=== PATIENT | male | born 1965 | race Caucasian/White ===

== ENCOUNTER 2023-12-08 09:55 | Outpatient (CLI) | payer MEDICARE, MEDICAID, SELFPAY | END 2023-12-08 09:56 | disposition home or self-care (01) | LOC: AMB 12-10 06:16 | PROVIDERS: Visit Provider Family Medicine | DX: R07.89 Other chest pain (principal) | CPT/HCPCS: A0425; A0427 ==

== ENCOUNTER 2023-12-08 10:23 | Inpatient (IN) | payer MEDICARE, SELFPAY ==
[2023-12-08] VITALS (31 sets, daily range): BP systolic 132–155; BP diastolic 74–88; PULSE 72–96; RESP 16–20; TEMP 36.7–37.3; O2SAT 86–922; BMI 25.8
--- NOTE | 2023-12-08 10:36 | ED.GENADULT ---
HPI - General Adult General Time Seen by Provider: 10:36 Date Seen: 12/08/23 Chief complaint: Shortness of Breath/Dyspnea Stated complaint: chest pain, short of breath Time Seen by Provider: 12/08/23 10:36 Source: patient, EMS, RN notes reviewed and old records reviewed Mode of arrival: EMS Limitations: no limitations History of Present Illness HPI narrative: This 58-year-old male is sent from [facility] via ambulance for concern of hypoxia in the setting of cough and chest discomfort. He is reported to been sick for 4 days in the Urgent Care documentation, he is telling me it has been a couple days. He has been coughing, there is pain with breathing. He states he feels like when he has had pneumonia before. He was noted to be down to 86% in Urgent Care, I see 89% documented. They did do mask oxygen at urgent care which was stopped. He is on 2 L nasal cannula oxygen with O2 sats at 92% currently. Patient is HIV positive, gets his care at [facility]. He has a remote history of tuberculosis that was treated at [facility] reportedly 20 years ago. He denies any associated GI symptoms. Staff including urgent care and EMS noted to hear crackling in his lungs. He has had associated shortness of breath and headache with his symptoms. Was noted to be having difficulty completing a sentence in urgent care. Related Data Home Medications Medication Instructions Recorded Confirmed alendronate 70 mg tablet 70 mg PO .weekly 12/08/23 12/08/23 atorvastatin 40 mg tablet 40 mg PO DAILY 12/08/23 12/08/23 dolutegravir 50 mg tablet (Tivicay) 50 mg PO DAILY 12/08/23 12/08/23 emtricitabine 200 mg-tenofovir 1 tab PO DAILY 12/08/23 12/08/23 alafenamide fumarate 25 mg tablet (Descovy) escitalopram oxalate 20 mg tablet 20 mg PO DAILY 12/08/23 12/08/23 gabapentin 300 mg capsule 300 mg PO 3XD 12/08/23 12/08/23 lorazepam 1 mg tablet 1 mg PO Q12H PRN 12/08/23 12/08/23 montelukast 10 mg tablet 10 mg PO DAILY 12/08/23 12/08/23 tramadol 50 mg tablet 50 mg PO 3XD PRN 12/08/23 12/08/23 valacyclovir 1 gram tablet 1,000 mg PO DAILY 12/08/23 12/08/23 Allergies Allergy/AdvReac Type Severity Reaction Status Date / Time rifampin Allergy Verified 12/08/23 09:43 Review of Systems Status of ROS: Reports: 6 or more systems reviewed and unremarkable except as noted in History and below [facility] Medical History (Updated 12/08/23 @ 16:32 by Hattie Mcintyre MD) Low back pain ?M54.50 - Low back pain, unspecified (ICD-10) Hepatitis C ?B19.20 - Unspecified viral hepatitis C without hepatic coma (ICD-10) Anxiety ?F41.9 - Anxiety disorder, unspecified (ICD-10) TIA (transient ischemic attack) ?G45.9 - Transient cerebral ischemic attack, unspecified (ICD-10) 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) Pulmonary TB ?A15.0 - Tuberculosis of lung (ICD-10) History of shingles ?Z86.19 - Personal history of other infectious and parasitic diseases (ICD-10) Depression ?F32.A - Depression, unspecified (ICD-10) Peripheral vascular disease ?I73.9 - Peripheral vascular disease, unspecified (ICD-10) HIV (human immunodeficiency virus infection) ?B20 - Human immunodeficiency virus [HIV] disease (ICD-10) Surgical History (Updated 12/08/23 @ 14:46 by Hattie Mcintyre MD) H/O umbilical hernia repair ?Z98.890 - Other specified postprocedural states (ICD-10) ?Z87.19 - Personal history of other diseases of the digestive system (ICD-10) Social History (Updated 12/08/23 @ 15:26 by Hattie Mcintyre MD) Narrative: Lives with partner Jose (medical decision maker if needed), not currently working. Smokes about 1ppd, drinks 3-4 drinks 4-5 nights/week. No history of ETOH withdrawal. Requests DNR/DNI status. What is your current living situation?: I presently have a place to live Problems where you live: no known problems Problems where you live details: n/a In the past 12 months, utilities in danger of being shut off: no In past 12 months, lack of transportation kept you from medical appts, meetings, work, or getting things needed for daily living: no In the past 12 mos, have been you worried that your food would run out before you had money to buy more?: never true In the past 12 mos, the food you bought just didn't last and you didn't have money to buy more?: never true Highest level of school completed/degree received: don't know Smoking Status: Current every day smoker What tobacco products do you use: cigarettes Smoking packs per day: 1 Smoking cigarettes per day: 20.0 Do you use any of these nicotine containing products: None How often do you have a drink containing alcohol: 4 or more times a week How many standard drinks containing alcohol do you have on a typical day: 3 or 4 AUDIT-C Alcohol total score: 5 Non-prescribed substance use: denies use Caffeine: Yes (2 diet cokes/day) Are you now , , , , never or living with a partner: living with partner Social isolation score (0-1 are the most socially isolated patients): 1 How often does anyone, including family, friends and others, physically hurt you: never How often does anyone, including family, friends and others, insult or talk down to you: never How often does anyone, including family, friends and others, threaten you with harm: never How often does anyone, including family, friends and others, scream or curse at you: never Exam Const: Vital Signs, click to edit/add: Vital Signs - 24 hr 12/08/23 10:29 12/08/23 10:35 12/08/23 10:40 Temperature 98.1 F Pulse Rate 76 Pulse Rate [Pulse Oximeter] 86 Respiratory Rate 16 Blood Pressure Blood Pressure [Ri ght Upper Arm] 139/86 Pulse Oximetry 92 93 92 Oxygen Delivery Me thod Room Air Nasal Cannula Nasal Cannula Oxygen Flow Rate 2 2 12/08/23 10:42 12/08/23 10:45 12/08/23 11:00 Temperature Pulse Rate 90 77 Pulse Rate [Pulse Oximeter] Respiratory Rate Blood Pressure Blood Pressure [Ri ght Upper Arm] Pulse Oximetry 922 H 93 93 Oxygen Delivery Me thod Nasal Cannula Nasal Cannula Oxygen Flow Rate 2 2 12/08/23 11:01 12/08/23 11:15 12/08/23 11:30 Temperature Pulse Rate 80 74 80 Pulse Rate [Pulse Oximeter] Respiratory Rate Blood Pressure 145/76 H Blood Pressure [Ri ght Upper Arm] Pulse Oximetry 94 86 L 88 Oxygen Delivery Me thod Nasal Cannula Room Air Room Air Oxygen Flow Rate 2 12/08/23 11:45 12/08/23 12:01 12/08/23 12:02 Temperature Pulse Rate 78 76 81 Pulse Rate [Pulse Oximeter] Respiratory Rate Blood Pressure 151/87 H Blood Pressure [Ri ght Upper Arm] Pulse Oximetry 86 L 91 90 Oxygen Delivery Me thod Room Air Nasal Cannula Nasal Cannula Oxygen Flow Rate 2 2 12/08/23 12:03 12/08/23 12:15 12/08/23 12:30 Temperature Pulse Rate 82 79 76 Pulse Rate [Pulse Oximeter] Respiratory Rate Blood Pressure Blood Pressure [Ri ght Upper Arm] Pulse Oximetry 90 89 91 Oxygen Delivery Me thod Nasal Cannula Nasal Cannula Nasal Cannula Oxygen Flow Rate 2 2 2 12/08/23 12:45 12/08/23 13:08 12/08/23 13:15 Temperature Pulse Rate 85 88 78 Pulse Rate [Pulse Oximeter] Respiratory Rate Blood Pressure Blood Pressure [Ri ght Upper Arm] Pulse Oximetry 91 92 91 Oxygen Delivery Me thod Nasal Cannula Nasal Cannula Nasal Cannula Oxygen Flow Rate 2 2 2 12/08/23 13:30 12/08/23 13:45 12/08/23 14:00 Temperature Pulse Rate 81 89 72 Pulse Rate [Pulse Oximeter] Respiratory Rate Blood Pressure Blood Pressure [Ri ght Upper Arm] Pulse Oximetry 89 89 91 Oxygen Delivery Me thod Nasal Cannula Nasal Cannula Nasal Cannula Oxygen Flow Rate 2 2 2 12/08/23 14:01 12/08/23 14:02 12/08/23 14:15 Temperature Pulse Rate 77 78 76 Pulse Rate [Pulse Oximeter] Respiratory Rate Blood Pressure 138/79 Blood Pressure [Ri ght Upper Arm] Pulse Oximetry 91 90 90 Oxygen Delivery Me thod Nasal Cannula Nasal Cannula Nasal Cannula Oxygen Flow Rate 2 2 2 12/08/23 14:30 Temperature Pulse Rate 78 Pulse Rate [Pulse Oximeter] Respiratory Rate Blood Pressure Blood Pressure [Ri ght Upper Arm] Pulse Oximetry 91 Oxygen Delivery Me thod Nasal Cannula Oxygen Flow Rate 2 This is a very pleasant 58-year-old gentleman that has oxygen on, is alert, interactive, no apparent distress. He is having no difficulty speaking, no hoarseness, able to complete sentences. Face atraumatic, sclera clear, conjugate gaze. Neck supple, no adenopathy, no noted jugular venous distension. He is able to sit up, no tachypnea noted, no accessory muscle use. His lungs did sound clear, initially heard some crackles in the left mid lung field which did clear, slightly distant breath sounds throughout but I hear no wheezing or crackles at this time. CV regular rate and rhythm, no murmur, normal S1-S2, no S3-S4. Abdomen is soft, no rebound or guarding, no organomegaly. He has no lower extremity edema. Documenting provider has reviewed patient's vital signs: yes Course Course ED Course: This is a patient with presenting hypoxia and respiratory symptoms. The triple viral swab was reportedly collected at Urgent Care, will have them run this. Will start with a portable chest x-ray, place an IV and get appropriate labs. He certainly could have 1 of the viral respiratory pathogen such as COVID or influenza, pneumonia is a possibility. With his HIV status, atypical pathogens and opportunistic infections need to be considered. May need to confer with [facility] on this patient. Patient understands that we may need to proceed with CT imaging if clinically indicated. Reevaluation(s) Time of Reevaluation #1: 11:48 Reevaluation #1: Patient is noted to be at 86% at rest now, will place on oxygen again. Obtaining chest CT to fully evaluate for respiratory pathogens, ordered urinary antigens for strep/legionella. Clinic did not test for rsv, will be added. Time of Reevaluation #2: 13:57 Reevaluation #2: Have reviewed with patient that his chest CT is not showing any pneumonia. I do not know his latest CD4 count. Again, he goes to the [facility] per his report. He does remember that his last doctor he was seen wanted him to go on some inhalers. Reviewed with him that I think he is having a COPD exacerbation, could be viral induced. Whether not he needs antibiotics is undetermined at this point. I will be talking to our hospitalist. Consultations Consultation #1: Have spoken with our hospitalist Dr. Mcintyre, reviewed that this is a hypoxic patient, believe he has a COPD exacerbation and have given him 40 mg oral prednisone. He does not have oxygen at home, will need admission. We have discussed the antibiotic issue, she will look into this further. She accepts care of this patient. Time: 13:57 Vital Signs Vital signs: Initial Vital Signs Temperature 98.1 F 12/08/23 10:29 Temperature Source Oral 12/08/23 10:29 Pulse Rate 86 12/08/23 10:29 Respiratory Rate 16 12/08/23 10:29 Respiratory Effort Spontaneous 12/08/23 10:29 Respiratory Depth Shallow 12/08/23 10:29 Respiratory Pattern Short of Breath 12/08/23 10:29 Blood Pressure 139/86 12/08/23 10:29 Blood Pressure Mean 103 12/08/23 10:29 Blood Pressure Position Supine 12/08/23 10:29 Pulse Oximetry 92 12/08/23 10:29 Oxygen Delivery Method Room Air 12/08/23 10:29 Vital Signs Temperature 98.1 F 12/08/23 10:29 Pulse Rate 86 12/08/23 10:29 Respiratory Rate 16 12/08/23 10:29 Blood Pressure 139/86 12/08/23 10:29 Pulse Oximetry 92 12/08/23 10:29 Oxygen Delivery Method Room Air 12/08/23 10:29 Temperature 98.8 F 12/08/23 16:27 Pulse Rate 96 12/08/23 16:27 Respiratory Rate 16 12/08/23 16:27 Blood Pressure 155/88 H 12/08/23 16:27 Pulse Oximetry 91 12/08/23 16:27 Oxygen Delivery Method Nasal Cannula 12/08/23 16:27 Oxygen Flow Rate 1 12/08/23 16:27 Medications Administered Medications: Generic Name Dose Route Start Last Admin Trade Name Freq PRN Reason Stop Dose Admin Lorazepam 0.5 - 1 mg 12/08/23 15:11 12/08/23 15:57 Lorazepam 0.5 Mg Tablet PO 0.5 mg Q4H PRN Administration Nicotine 1 patch 12/08/23 15:30 12/08/23 15:55 Nicotine 7 Mg Patch TRANSDERMA 1 patch Q24H MYRNA Administration Discontinued Medications Generic Name Dose Route Start Last Admin Trade Name Freq PRN Reason Stop Dose Admin Prednisone 40 mg 12/08/23 13:57 12/08/23 14:06 Prednisone 10 Mg Tablet PO 12/08/23 13:58 40 mg ONCE ONE Administration Medical Decision Making Lab Data Lab results reviewed: Yes I reviewed the patient's lab results Labs: Lab Results 12/08/23 12/08/23 12/08/23 Range/Units 10:40 10:55 11:58 WBC 9.26 (4.50-11.00) K/uL RBC 4.17 L (4.30-5.90) m/uL Hgb 14.8 (13.5-17.5) gm/dL Hct 43.9 (37.0-53.0) % MCV 105 H (80-100) fL MCH 36 H (26-34) pg MCHC 34 (32-36) gm/dL RDW Coeff of Mark 13.2 (11.5-15.5) % Plt Count 93 L (140-440) K/uL Neut % (Auto) 77.6 H (42.0-72.0) % Lymph % (Auto) 16.3 L (20-44) % [place] % (Auto) 4.5 (0.0-11.0) % Eos % (Auto) 0.9 (0.0-7.0) % Baso % (Auto) 0.5 (0.0-3.0) % Neut # (Auto) 7.20 H (1.7-7.0) K/uL Lymph # (Auto) 1.50 (0.90-2.90) K/uL [place] # (Auto) 0.40 (0.00-0.90) K/UL Eos # (Auto) 0.08 (0.00-0.50) K/uL Baso # (Auto) 0.05 (0.00-0.30) K/uL Abs Immat Gran (auto) 0.02 (0.00-0.30) K/uL Imm/Tot Granulo (auto) 0.2 % VBG pH 7.424 (7.32-7.43) VBG pCO2 40 (40-50) mmHG VBG pO2 54.1 H (25-47) mmHG VBG HCO3 26 (21-28) mmol/L Sodium 136 (135-149) mmol/L Potassium 4.0 (3.6-5.1) mmol/L Chloride 104 (96-114) mmol/L Carbon Dioxide 24 (20-32) mmol/L Anion Gap 8 (7-15) mEq/L BUN 13 (7-30) mg/dL Creatinine 0.6 (0.5-1.5) mg/dL Estimated Creat Clear 134.20 Estimated GFR 112 ml/min Glucose 119 H (60-115) mg/dL Lactate 1.4 (0.5-1.9) mmol/L Calcium 8.8 (8.4-10.6) mg/dL Total Bilirubin 2.6 H (0.1-1.5) mg/dL AST 72 H (12-35) U/L ALT 38 (4-50) U/L Alkaline Phosphatase 95 (40-150) U/L Troponin I 0.02 (0.01-0.04) ng/mL C-Reactive Protein < 0.5 L (0.5-1.0) mg/dL NT-Pro-B Natriuret Pep 23 pg/mL Total Protein 8.3 (6.0-8.3) g/dL Albumin 4.7 (3.3-5.0) g/dL Procalcitonin 0.05 (<0.50) ng/mL Urine L. pneumophilia Ag Cancelled Urine Strep pneumoniae Ag Cancelled SARS-CoV-2 (PCR) (Negative) Influenza Type A (PCR) (Negative) Influenza Type B (PCR) (Negative) RSV (PCR) (Negative) Lab Acknowledgement POC Troponin I 0.00 L (0.01-0.04) ng/ml 12/08/23 12/08/23 Range/Units 12:00 14:00 WBC (4.50-11.00) K/uL RBC (4.30-5.90) m/uL Hgb (13.5-17.5) gm/dL Hct (37.0-53.0) % MCV (80-100) fL MCH (26-34) pg MCHC (32-36) gm/dL RDW Coeff of Mark (11.5-15.5) % Plt Count (140-440) K/uL Neut % (Auto) (42.0-72.0) % Lymph % (Auto) (20-44) % [place] % (Auto) (0.0-11.0) % Eos % (Auto) (0.0-7.0) % Baso % (Auto) (0.0-3.0) % Neut # (Auto) (1.7-7.0) K/uL Lymph # (Auto) (0.90-2.90) K/uL [place] # (Auto) (0.00-0.90) K/UL Eos # (Auto) (0.00-0.50) K/uL Baso # (Auto) (0.00-0.30) K/uL Abs Immat Gran (auto) (0.00-0.30) K/uL Imm/Tot Granulo (auto) % VBG pH (7.32-7.43) VBG pCO2 (40-50) mmHG VBG pO2 (25-47) mmHG VBG HCO3 (21-28) mmol/L Sodium (135-149) mmol/L Potassium (3.6-5.1) mmol/L Chloride (96-114) mmol/L Carbon Dioxide (20-32) mmol/L Anion Gap (7-15) mEq/L BUN (7-30) mg/dL Creatinine (0.5-1.5) mg/dL Estimated Creat Clear Estimated GFR ml/min Glucose (60-115) mg/dL Lactate (0.5-1.9) mmol/L Calcium (8.4-10.6) mg/dL Total Bilirubin (0.1-1.5) mg/dL AST (12-35) U/L ALT (4-50) U/L Alkaline Phosphatase (40-150) U/L Troponin I (0.01-0.04) ng/mL C-Reactive Protein (0.5-1.0) mg/dL NT-Pro-B Natriuret Pep pg/mL Total Protein (6.0-8.3) g/dL Albumin (3.3-5.0) g/dL Procalcitonin (<0.50) ng/mL Urine L. pneumophilia Ag Urine Strep pneumoniae Ag SARS-CoV-2 (PCR) Negative SARS-CoV-2 (Negative) Influenza Type A (PCR) Negative PCR FLU A (Negative) Influenza Type B (PCR) Negative PCR FLU B (Negative) RSV (PCR) Negative PCR RSV (Negative) Lab Acknowledgement Test Added POC Troponin I (0.01-0.04) ng/ml Imaging Data Chest x-ray: Attestation: I have reviewed the pertinent imaging results. My impression: ML right lower lobe linear appearing change. Await Radiology over-read. Will be obtaining chest CT as it is imperative to define potential respiratory pathogens in this patient. Radiologist's impression: Patient: [facility] Facility:?[facility] Patient ID:?[id number] Site Patient ID:?[id number]. Site :?1965 Study:?XRay Chest 1V-12/08/2023 11:09:30 AM Ordering Physician:?DR. MEJIA Final Report: INDICATION: Short of breath, HIV positive TECHNIQUE: 1 view chest radiograph COMPARISON: None. FINDINGS: Devices: None. Lung volumes are good. Eventration of the right hemidiaphragm. Streaky right middle lobe opacities. No pleural effusion. No pneumothorax. Heart size is normal. IMPRESSION: Nonspecific linear right middle lobe opacities may be pneumonia or atelectasis. Dictated by Archana Gamino MD @ 12/08/2023 11:44:49 AM (Electronic Signature) CT scan - chest: Attestation: I have reviewed the pertinent imaging results. Radiologist's impression: Patient: [facility] Facility:?[facility] Patient ID:?[id number] Site Patient ID:?[id number]. Site :?1965 Study:?CT Chest W/O-12/08/2023 1:10:20 PM Ordering Physician:RUDOLPH Final Report: INDICATION: Cough, HIV positive TECHNIQUE: CT of the chest was performed without intravenous contrast. Please note that all CT scans at this facility use dose modulation, iterative reconstruction, and/or weight-based dosing when appropriate to reduce radiation dose to as low as reasonably achievable. COMPARISON: Same day chest radiograph. FINDINGS: Medical devices: None. Thyroid: Normal. Lymph nodes: Limited evaluation without IV contrast. No supraclavicular, axillary, mediastinal, or hilar lymphadenopathy. Vasculature: Limited evaluation without IV contrast. Aorta and main pulmonary artery diameters are within normal range. Mild aortic calcification. Heart: Mild coronary artery calcification. No pericardial effusion. Other mediastinal structures: No significant abnormality. Lung parenchyma: Moderate centrilobular emphysema. 9 millimeter right upper lobe cyst (3/45). 1.2 centimeter right major fissure cyst (3/60). 7 millimeter left lower lobe cyst (3/76). Airways: Xiui-mo-bywvpqqe bronchial wall thickening. Pleura: No significant abnormality. Chest wall: Mild bilateral gynecomastia. Upper abdomen: Mild hepatic steatosis. Cholelithiasis. Musculoskeletal: Mild multilevel degenerative changes of the visualized spine. Mild chronic posterior right rib deformities. IMPRESSION: 1. Moderate centrilobular emphysema with bilateral small pulmonary cysts. No focal consolidation or ground-glass opacities are seen. Consider correlation with CD4 count. 2. Dddm-xr-ognbkmuh bronchial wall thickening may represent airways infection or inflammation. Please note that all CT scans at this facility use dose modulation, iterative reconstruction, and/or weight-based dosing when appropriate to reduce radiation dose to as low as reasonably achievable. Dictated by Ike Aguilar MD @ 12/08/2023 1:41:47 PM (Electronic Signature) ECG Data Attestation: I personally reviewed and interpreted this ECG as follows: (Normal sinus rhythm, 72 beats per minute. Flipped T-waves V1 through V4 without ST segment change, poor R-wave progression.) Prior ECG tracings: not available for review Discharge Plan Discharge Clinical Impression: COPD with acute exacerbation, Hypoxia HIV (human immunodeficiency virus infection) Qualifiers: HIV symptom status: unspecified Qualified Code(s): B20 - Human immunodeficiency virus [HIV] disease Patient Disposition: Admitted As Observation
--- NOTE | 2023-12-08 10:42 | XR_ITS ---
Patient: RADHA YOUNGER Facility:?[facility] Patient ID:?[id number] Site Patient ID:?[id number]. Site :?1965 Study:?XRay-Chest 1V-12/08/2023 11:09:30 AM Ordering Physician:?DR. MEJIA Final Report: INDICATION: Short of breath, HIV positive TECHNIQUE: 1 view chest radiograph COMPARISON: None. FINDINGS: Devices: None. Lung volumes are good. Eventration of the right hemidiaphragm. Streaky right middle lobe opacities. No pleural effusion. No pneumothorax. Heart size is normal. IMPRESSION: Nonspecific linear right middle lobe opacities may be pneumonia or atelectasis. Dictated by Archana Gamino MD @ 12/08/2023 11:44:49 AM Signed by:?Archana Gamino MD @12/08/2023 11:44:49 AM (Electronic Signature)
[2023-12-08 11:04] LABS: HCO3 VBG 26 mmol/L (21-28); Lactate* 1.4 mmol/L (0.5-1.9); PCO2 VBG 40 mmHG (40-50); PO2 VBG 54.1 mmHG (25-47); pH VBG 7.424 (7.32-7.43)
[2023-12-08 11:08] LABS: Basophils Absolute Auto 0.05 K/uL (0.00-0.30); Basophils Percent Auto 0.5 % (0.0-3.0); Eosinophils Absolute Auto 0.08 K/uL (0.00-0.50); Eosinophils Percent Auto 0.9 % (0.0-7.0); Hematocrit 43.9 % (37.0-53.0); Hemoglobin* 14.8 gm/dL (13.5-17.5); Immature Granulocytes Abs Auto 0.02 K/uL (0.00-0.30); Immature Granulocytes Pct Auto 0.2 %; Lymphocytes Percent Auto 16.3 % (20-44); Mean Corpuscular HGB Conc 34 gm/dL (32-36); Mean Corpuscular Hemoglobin 36 pg (26-34); Mean Corpuscular Volume 105 fL (80-100); Monocytes Percent Auto 4.5 % (0.0-11.0); Neutrophils Percent Auto 77.6 % (42.0-72.0); Platelet Count* 93 K/uL (140-440); RDW Coefficient of Variation % 13.2 % (11.5-15.5); Red Blood Count 4.17 m/uL (4.30-5.90); Slide Review Reflex No; White Blood Count* 9.26 K/uL (4.50-11.00)
[2023-12-08 11:22] LABS: Albumin* 4.7 g/dL (3.3-5.0); Chloride* 104 mmol/L (96-114)
[2023-12-08 11:23] LABS: Sodium* 136 mmol/L (135-149)
[2023-12-08 11:25] LABS: Bilirubin Total* 2.6 mg/dL (0.1-1.5); Creatinine* 0.6 mg/dL (0.5-1.5); Estimated Glomerular Filt Rate 112 ml/min
[2023-12-08 11:26] LABS: Alanine Aminotransferase* 38 U/L (4-50); Alkaline Phosphatase* 95 U/L (40-150); Anion Gap 8 mEq/L (7-15); Aspartate Amino Transferase* 72 U/L (12-35); Blood Urea Nitrogen* 13 mg/dL (7-30); Calcium* 8.8 mg/dL (8.4-10.6); Carbon Dioxide* 24 mmol/L (20-32); Glucose* 119 mg/dL (60-115); Total Protein* 8.3 g/dL (6.0-8.3)
--- NOTE | 2023-12-08 11:30 | CT_ITS ---
Patient: RADHA YOUNGER Facility:?[facility] Patient ID:?[id number] Site Patient ID:?[id number]. Site :?1965 Study:?CT-Chest W/O-12/08/2023 1:10:20 PM Ordering Physician:RUDOLPH Final Report: INDICATION: Cough, HIV positive TECHNIQUE: CT of the chest was performed without intravenous contrast. Please note that all CT scans at this facility use dose modulation, iterative reconstruction, and/or weight-based dosing when appropriate to reduce radiation dose to as low as reasonably achievable. COMPARISON: Same day chest radiograph. FINDINGS: Medical devices: None. Thyroid: Normal. Lymph nodes: Limited evaluation without IV contrast. No supraclavicular, axillary, mediastinal, or hilar lymphadenopathy. Vasculature: Limited evaluation without IV contrast. Aorta and main pulmonary artery diameters are within normal range. Mild aortic calcification. Heart: Mild coronary artery calcification. No pericardial effusion. Other mediastinal structures: No significant abnormality. Lung parenchyma: Moderate centrilobular emphysema. 9 millimeter right upper lobe cyst (3/45). 1.2 centimeter right major fissure cyst (3/60). 7 millimeter left lower lobe cyst (3/76). Airways: Wjxi-kv-tesgvboh bronchial wall thickening. Pleura: No significant abnormality. Chest wall: Mild bilateral gynecomastia. Upper abdomen: Mild hepatic steatosis. Cholelithiasis. Musculoskeletal: Mild multilevel degenerative changes of the visualized spine. Mild chronic posterior right rib deformities. IMPRESSION: 1. Moderate centrilobular emphysema with bilateral small pulmonary cysts. No focal consolidation or ground-glass opacities are seen. Consider correlation with CD4 count. 2. Edlk-vq-lwaslbhm bronchial wall thickening may represent airways infection or inflammation. Please note that all CT scans at this facility use dose modulation, iterative reconstruction, and/or weight-based dosing when appropriate to reduce radiation dose to as low as reasonably achievable. Dictated by Ike Aguilar MD @ 12/08/2023 1:41:47 PM Signed by:?Ike Aguilar MD @12/08/2023 1:41:47 PM (Electronic Signature)
[2023-12-08 11:37] LABS: Troponin I* 0.02 ng/mL (0.01-0.04)
[2023-12-08 11:40] LABS: C Reactive Protein* < 0.5 mg/dL (0.5-1.0)
[2023-12-08 11:52] LABS: NT Pro B Type NatriureticPept* 23 pg/mL
[2023-12-08 13:14] LABS: PCR FLU A Negative PCR FLU A (Negative); PCR FLU B Negative PCR FLU B (Negative); PCR RSV Negative PCR RSV (Negative); SARS PCR* Negative SARS-CoV-2 (Negative)
[2023-12-08] MEDS: predniSONE 10 MG TABLET 40 MG PO (14:06)
[2023-12-08 14:36] LABS: Procalcitonin* 0.05 ng/mL (<0.50)
--- NOTE | 2023-12-08 14:40 | P.IMHP_ITS ---
Hospitalist- H&P: HPI History of Present Illness Date Seen: 12/08/23 Chief complaint: chest pain, short of breath Narrative: Jhony Varela is a 58 year old male who presented to the ER via ambulance from urgent care for hypoxia in the setting of recent illness. He has noted a cough with occasional clear sputum for the past 3-4 days. No hemoptysis. No chest pain at rest, but does get chest discomfort with his cough. No sick contacts, no recent concerning travel. When he was in the urgent care, he was noted to be tachypneic and hypoxic with O2 saturations og 86% on RA. ER course and findings: - receive 40 mg of prednisone and supplemental oxygen for hypoxia - moderate emphysema on chest CT with mild to moderate bronchial wall thickening - reassuring VBG, WBC, and procalcitonin Given patient's acute hypoxic respiratory failure and immunocompromised status (HIV +, last CD4 count within normal limits in October 2023), he is admitted to the hospital. Jhony has no formal diagnosis of COPD, but has discussed inhaler treatments with his PCP in the past. Histories otherwise updated below, PCP is Dr. Zuleyma Hernandez at [facility] [place]. Review of Systems Status of ROS: Reports: 10 or more systems reviewed and unremarkable except as noted in History and below Narrative: - no GI or symptoms - no skin concerns - + stress with father's declining health (he's currently hospitalized in [place]) [facility] Medical History (Updated 12/08/23 @ 16:32 by Hattie Mcintyre MD) Low back pain ?M54.50 - Low back pain, unspecified (ICD-10) Hepatitis C ?B19.20 - Unspecified viral hepatitis C without hepatic coma (ICD-10) Anxiety ?F41.9 - Anxiety disorder, unspecified (ICD-10) TIA (transient ischemic attack) ?G45.9 - Transient cerebral ischemic attack, unspecified (ICD-10) 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) Pulmonary TB ?A15.0 - Tuberculosis of lung (ICD-10) History of shingles ?Z86.19 - Personal history of other infectious and parasitic diseases (ICD- 10) Depression ?F32.A - Depression, unspecified (ICD-10) Peripheral vascular disease ?I73.9 - Peripheral vascular disease, unspecified (ICD-10) HIV (human immunodeficiency virus infection) ?B20 - Human immunodeficiency virus [HIV] disease (ICD-10) Surgical History (Updated 12/08/23 @ 14:46 by Hattie Mcintyre MD) H/O umbilical hernia repair ?Z98.890 - Other specified postprocedural states (ICD-10) ?Z87.19 - Personal history of other diseases of the digestive system (ICD-10) Social History (Updated 12/08/23 @ 15:26 by Hattie Mcintyre MD) Narrative: Lives with partner Jose (medical decision maker if needed), not currently working. Smokes about 1ppd, drinks 3-4 drinks 4-5 nights/week. No history of ETOH withdrawal. Requests DNR/DNI status. What is your current living situation?: I presently have a place to live Smoking Status: Current every day smoker How often do you have a drink containing alcohol: 4 or more times a week How many standard drinks containing alcohol do you have on a typical day: 3 or 4 AUDIT-C Alcohol total score: 5 Are you now , , , , never or living with a partner: living with partner Social isolation score (0-1 are the most socially isolated patients): 1 Meds Home Medications and Allergies Home Medications Medication Instructions Recorded Confirmed Type alendronate 70 mg tablet 70 mg PO .weekly 12/08/23 12/08/23 History atorvastatin 40 mg tablet 40 mg PO DAILY 12/08/23 12/08/23 History dolutegravir 50 mg tablet (Tivicay) 50 mg PO DAILY 12/08/23 12/08/23 History emtricitabine 200 mg-tenofovir 1 tab PO DAILY 12/08/23 12/08/23 History alafenamide fumarate 25 mg tablet (Descovy) escitalopram oxalate 20 mg tablet 20 mg PO DAILY 12/08/23 12/08/23 History gabapentin 300 mg capsule 300 mg PO 3XD 12/08/23 12/08/23 History lorazepam 1 mg tablet 1 mg PO Q12H PRN 12/08/23 12/08/23 History montelukast 10 mg tablet 10 mg PO DAILY 12/08/23 12/08/23 History tramadol 50 mg tablet 50 mg PO 3XD PRN 12/08/23 12/08/23 History valacyclovir 1 gram tablet 1,000 mg PO DAILY 12/08/23 12/08/23 History Allergies Allergy/AdvReac Type Severity Reaction Status Date / Time rifampin Allergy Verified 12/08/23 09:43 Exam Narrative: Exam Narrative: GEN: Alert and answering questions appropriately. When I 1st see patient he is just getting back to bed from the bathroom and is tachypneic. Upon resting, his breathing does improve HEENT: EOMIs bilaterally, + mild scleral icterus bilaterally CV: RRR, No concerning murmurs R: Decreased bibasilar air movement, no significant wheeze during my exam Ext: wwp, no concerning edema Skin: No concerning skin lesions or rashes on exposed skin Neuro: No focal deficits, no resting tremor Psych: Appropriate Const: Vital Signs, click to edit/add: Vital Signs - 24 hr 12/08/23 10:29 12/08/23 10:35 12/08/23 10:40 Temperature 98.1 F Pulse Rate 76 Pulse Rate [Pulse Oximeter] 86 Respiratory Rate 16 Blood Pressure Blood Pressure [Ri ght Upper Arm] 139/86 Pulse Oximetry 92 93 92 Oxygen Delivery Me thod Room Air Nasal Cannula Nasal Cannula Oxygen Flow Rate 2 2 12/08/23 10:42 12/08/23 10:45 12/08/23 11:00 Temperature Pulse Rate 90 77 Pulse Rate [Pulse Oximeter] Respiratory Rate Blood Pressure Blood Pressure [Ri ght Upper Arm] Pulse Oximetry 922 H 93 93 Oxygen Delivery Me thod Nasal Cannula Nasal Cannula Oxygen Flow Rate 2 2 12/08/23 11:01 12/08/23 11:15 12/08/23 11:30 Temperature Pulse Rate 80 74 80 Pulse Rate [Pulse Oximeter] Respiratory Rate Blood Pressure 145/76 H Blood Pressure [Ri ght Upper Arm] Pulse Oximetry 94 86 L 88 Oxygen Delivery Me thod Nasal Cannula Room Air Room Air Oxygen Flow Rate 2 12/08/23 11:45 12/08/23 12:01 12/08/23 12:02 Temperature Pulse Rate 78 76 81 Pulse Rate [Pulse Oximeter] Respiratory Rate Blood Pressure 151/87 H Blood Pressure [Ri ght Upper Arm] Pulse Oximetry 86 L 91 90 Oxygen Delivery Me thod Room Air Nasal Cannula Nasal Cannula Oxygen Flow Rate 2 2 12/08/23 12:03 12/08/23 12:15 12/08/23 12:30 Temperature Pulse Rate 82 79 76 Pulse Rate [Pulse Oximeter] Respiratory Rate Blood Pressure Blood Pressure [Ri ght Upper Arm] Pulse Oximetry 90 89 91 Oxygen Delivery Me thod Nasal Cannula Nasal Cannula Nasal Cannula Oxygen Flow Rate 2 2 2 12/08/23 12:45 12/08/23 13:08 12/08/23 13:15 Temperature Pulse Rate 85 88 78 Pulse Rate [Pulse Oximeter] Respiratory Rate Blood Pressure Blood Pressure [Ri ght Upper Arm] Pulse Oximetry 91 92 91 Oxygen Delivery Me thod Nasal Cannula Nasal Cannula Nasal Cannula Oxygen Flow Rate 2 2 2 12/08/23 13:30 12/08/23 13:45 12/08/23 14:00 Temperature Pulse Rate 81 89 72 Pulse Rate [Pulse Oximeter] Respiratory Rate Blood Pressure Blood Pressure [Ri ght Upper Arm] Pulse Oximetry 89 89 91 Oxygen Delivery Me thod Nasal Cannula Nasal Cannula Nasal Cannula Oxygen Flow Rate 2 2 2 12/08/23 14:01 12/08/23 14:02 12/08/23 14:15 Temperature Pulse Rate 77 78 76 Pulse Rate [Pulse Oximeter] Respiratory Rate Blood Pressure 138/79 Blood Pressure [Ri ght Upper Arm] Pulse Oximetry 91 90 90 Oxygen Delivery Me thod Nasal Cannula Nasal Cannula Nasal Cannula Oxygen Flow Rate 2 2 2 12/08/23 14:30 Temperature Pulse Rate 78 Pulse Rate [Pulse Oximeter] Respiratory Rate Blood Pressure Blood Pressure [Ri ght Upper Arm] Pulse Oximetry 91 Oxygen Delivery Me thod Nasal Cannula Oxygen Flow Rate 2 Hospitalist - H&P: Result Labs Labs: Short CBC 12/08/23 Range/Units 10:55 WBC 9.26 (4.50-11.00) K/uL Hgb 14.8 (13.5-17.5) gm/dL Hct 43.9 (37.0-53.0) % Plt Count 93 L (140-440) K/uL BMP 12/08/23 10:55 Sodium 136 Potassium 4.0 Chloride 104 Carbon Dioxide 24 BUN 13 Creatinine 0.6 Glucose 119 H Calcium 8.8 Cardiac Enzymes 12/08/23 Range/Units 10:55 Troponin I 0.02 (0.01-0.04) ng/mL Liver Function 12/08/23 Range/Units 10:55 Total Bilirubin 2.6 H (0.1-1.5) mg/dL AST 72 H (12-35) U/L ALT 38 (4-50) U/L Alkaline Phosphatase 95 (40-150) U/L Albumin 4.7 (3.3-5.0) g/dL Assessment and Plan Assessment and plan (1) Hypoxia: Problem comment: - acute; history and imaging c/w underlying COPD - continue supplemental oxygen, taper as tolerated Status: Acute (2) COPD with acute exacerbation: Problem comment: - steroids, nebs, Levaquin given risk factors - received immunizations for PCV13 in 2013, P23 in 1990 and 2004 - afebrile with negative procalcitonin - urinary antigens for strep pneumo and legionella pending Status: Acute (3) Anxiety: Problem comment: - on Escitalopram at home + BID Ativan, will continue - anticipate that he may need more Ativan during stay given tobacco withdrawal + steroids Status: Acute (4) HIV (human immunodeficiency virus infection): Problem comment: - diagnosed in 1990, follows with Dr. Hernandez at [facility]. On daily Descovy and Tivicay - last CD4 count 897 (wnl) October 2023 Status: Acute (5) Elevated LFTs: Problem comment: - with macrocytosis, c/w ETOH overuse. No RUQ pain, nausea or vomiting. César denies history of withdrawal, with follow LFTs and CIWA Status: Acute Plan - per above - PPI, po intake, SCDs and Lovenox for ppx - partner Jose updated by phone, questions answered
[2023-12-08] MEDS: NICOTINE 7 MG PATCH 1 PATCH TRANSDERMA (15:55)
[2023-12-08] MEDS: LORazepam 0.5 MG TABLET PO ×2 (15:57→22:28)
[2023-12-08] MEDS: guaiFENesin 100 MG/ML CUP PO (18:34)
[2023-12-08] MEDS: THIAMINE 100 MG TABLET PO (18:35)
[2023-12-08] MEDS: IPRAT-ALBUT 0.5-2.5 MG/3 ML NEB 1 NEB IH (18:35)
[2023-12-08] MEDS: levoFLOXacin 500 MG TABLET PO (19:40)
--- NOTE | 2023-12-08 20:36 | RESP.RT ---
Patient has a 30+ pack year history. SATing 90% on room air. Currently still smokes, but is willing to quit. We discussed he may need home O2 with activity, and testing may be done prior to discharge.
[2023-12-08] MEDS: SODIUM CHLORIDE 0.9 % (FLUSH) 10 ML SYRINGE 5 ML IVF (21:10)
--- NOTE | 2023-12-08 23:40 | PC.NURSE ---
Shift note: Pt has been on airborne precaution. SBA in room, A/O. Pt had low grade fever of 99.2 at the start of the shift. CIWA AR has been at 6. Pt was anxious at 2230 and requested for Ativan, 0.5mg given and appeared effective.
[2023-12-09 03:00] VITALS: BP 130/86; PULSE 75; RESP 16; TEMP 36.8; O2SAT 91
[2023-12-09 03:58] VITALS: BP 130/86; PULSE 106; RESP 18; TEMP 36.8; O2SAT 90
[2023-12-09] MEDS: TRAMADOL HCL 50 MG TABLET PO (04:06)
[2023-12-09] MEDS: ACETAMINOPHEN 325 MG TABLET 975 MG PO (04:06)
[2023-12-09] MEDS: guaiFENesin 100 MG/ML CUP PO (04:17)
[2023-12-09] MEDS: OMEPRAZOLE 20 MG CAPSULE DR 40 MG PO (06:20)
[2023-12-09 06:26] LABS: Basophils Absolute Auto 0.06 K/uL (0.00-0.30); Basophils Percent Auto 0.6 % (0.0-3.0); Eosinophils Absolute Auto 0.05 K/uL (0.00-0.50); Eosinophils Percent Auto 0.5 % (0.0-7.0); Hematocrit 42.7 % (37.0-53.0); Hemoglobin* 14.6 gm/dL (13.5-17.5); Immature Granulocytes Abs Auto 0.02 K/uL (0.00-0.30); Immature Granulocytes Pct Auto 0.2 %; Lymphocytes Percent Auto 17.5 % (20-44); Mean Corpuscular HGB Conc 34 gm/dL (32-36); Mean Corpuscular Hemoglobin 36 pg (26-34); Mean Corpuscular Volume 105 fL (80-100); Monocytes Percent Auto 6.2 % (0.0-11.0); Platelet Count* 87 K/uL (140-440); RDW Coefficient of Variation % 13.1 % (11.5-15.5); Red Blood Count 4.05 m/uL (4.30-5.90); White Blood Count* 9.56 K/uL (4.50-11.00)
[2023-12-09 06:29] LABS: HCO3 VBG 28 mmol/L (21-28); PCO2 VBG 44 mmHG (40-50); PO2 VBG < 30.1 mmHG (25-47); pH VBG 7.405 (7.32-7.43)
--- NOTE | 2023-12-09 06:39 | PC.NURSE ---
Patient pleasant, alert and oriented. Ambulated in room independently. O2 Sats 87-90% on room air during night. Some tremors and sweating noted. PRN Tylenol and Tramadol given for back, neck and shoulder pain.?
[2023-12-09 06:57] LABS: Slide Review Reflex No
[2023-12-09 06:58] LABS: Albumin* 4.6 g/dL (3.3-5.0); Chloride* 104 mmol/L (96-114)
[2023-12-09 06:59] LABS: Potassium* 4.5 mmol/L (3.6-5.1); Sodium* 136 mmol/L (135-149)
[2023-12-09 07:00] VITALS: BP 136/81; PULSE 106; PULSE 96; RESP 18; TEMP 36.8; O2SAT 90; O2SAT 91
[2023-12-09 07:01] LABS: Alkaline Phosphatase* 83 U/L (40-150); Anion Gap 5 mEq/L (7-15); Aspartate Amino Transferase* 77 U/L (12-35); Bilirubin Direct* 0.5 mg/dL (0.0-0.5); Bilirubin Total* 3.5 mg/dL (0.1-1.5); Blood Urea Nitrogen* 17 mg/dL (7-30); Carbon Dioxide* 27 mmol/L (20-32); Creatinine* 0.7 mg/dL (0.5-1.5); Est. Creatinine Clearance* 115.03; Estimated Glomerular Filt Rate 107 ml/min; Gamma Glutamyl Transpeptidase* 408 U/L (8-55); Glucose* 105 mg/dL (60-115); Total Protein* 8.1 g/dL (6.0-8.3)
[2023-12-09 07:02] LABS: Alanine Aminotransferase* 44 U/L (4-50); Calcium* 9.2 mg/dL (8.4-10.6)
[2023-12-09 07:17] LABS: INR 1.11 (0.91-1.10)
[2023-12-09] MEDS: NICOTINE 4 MG GUM BUCCAL (08:34)
[2023-12-09] MEDS: predniSONE 20 MG TABLET 40 MG PO (09:32)
[2023-12-09] MEDS: ESCITALOPRAM 10 MG TABLET 20 MG PO (09:32)
[2023-12-09] MEDS: ATORVASTATIN CALCIUM 40 MG TABLET PO (09:32)
[2023-12-09] MEDS: SODIUM CHLORIDE 0.9 % (FLUSH) 10 ML SYRINGE 5 ML IVF (09:33)
[2023-12-09] MEDS: MONTELUKAST 10 MG TABLET PO (09:33)
[2023-12-09] MEDS: VALACYCLOVIR HCL 500 MG TABLET 1000 MG PO (09:33)
--- NOTE | 2023-12-09 11:39 | PM.DS1 ---
DS: Providers Provider Time Seen by Provider: 09:40 Date Seen: 12/09/23 Date of admission: 12/08/23 15:11 Primary care physician: Not a Local Provider Admitting Clinician: Hattie Mcintyre MD Consults: 12/08/23 15:11 Consult to Respiratory Therapy [CONS] Routine Comment: Reason(s) for RT Consult:: Consult Attending Physician on discharge: Manda Spring MD Date of Discharge: 12/09/23 DS: Diagnosis Discharge Diagnosis (1) Hypoxia: Status: Resolved Problem details: - acute; history and imaging c/w underlying COPD - has not required any supplemental oxygen overnight - counseled today regarding tobacco cessation, patient is agreeable and would like to tried nicotine gum or patch (2) COPD with acute exacerbation: Status: Acute Problem details: - steroids, nebs, Levaquin given risk factors - received immunizations for PCV13 in 2013, P23 in 1990 and 2004 - afebrile with negative procalcitonin - urinary antigens for strep pneumo and legionella pending (3) HIV (human immunodeficiency virus infection): Status: Chronic Problem details: - diagnosed in 1990, follows with Dr. Hernandez at [facility]. On daily Descovy and Tivicay - last CD4 count 897 (wnl) October 2023 (4) Elevated LFTs: Status: Acute Problem details: - with macrocytosis, c/w ETOH overuse. No RUQ pain, nausea or vomiting. César denies history of withdrawal, does have mild withdrawal today, but vital signs are stable and can discharge home today (5) Anxiety: Status: Chronic Problem details: - on Escitalopram at home + BID Ativan (6) Tobacco dependence: Status: Acute Problem details: Nicotine gum for home going, counseled regarding complete cessation, especially in light of COPD (7) Alcohol use: Status: Acute Problem details: Mild alcohol withdrawal DS: Summary Hospital Course Hospital Course: This is a 58-year-old male with HIV and recent CD4 count within normal limits who presented via ambulance to the ER yesterday from urgent care due to hypoxia in the setting of recent illness. He had a cough with occasional clear sputum over 3-4 days. No chest pain at rest but did get chest discomfort with the cough. No sick contacts or recent travel. He was tachypneic and hypoxic with O2 sats 86% on room air. He received 40 mg of prednisone a supplemental oxygen in the ER. Moderate emphysema was seen on chest CT. He is a current smoker. White blood count, VBG, and prolactin were reassuring. He was admitted overnight and was able to wean off supplemental oxygen and tolerated walking in the curry without any oxygen or desaturations today. Will continue steroids, nebs, and levofloxacin for home going and have patient follow-up with his primary care provider. We also spent 7 minutes discussing tobacco cessation in use of nicotine gum. Time spent discussing smoking cessation with patient: 3 to 10 minutes Time Spent with Patient Time attestation: Total time spent providing and/or coordinating discharge services: Exam Narrative: Exam Narrative: General: No acute distress. Anxious at times. Awake, alert, oriented. No pallor. No jaundice. Oropharynx: Clear. Mucous membranes moist. Cardiovascular: Regular rate and rhythm. No murmurs, gallops, or rubs. Respiratory: No respiratory distress. Clear to auscultation bilaterally. No wheezes or crackles. Abdomen: Bowel sounds present. Soft, nondistended, nontender. Extremities: No pedal edema. Const: Vital Signs, click to edit/add: Vital Signs - 24 hr 12/08/23 11:45 12/08/23 12:01 12/08/23 12:02 Temperature Pulse Rate 78 76 81 Pulse Rate [Pulse Oximeter] Respiratory Rate Blood Pressure 151/87 H Blood Pressure [Ri ght Arm] Pulse Oximetry 86 L 91 90 Oxygen Delivery Me thod Room Air Nasal Cannula Nasal Cannula Oxygen Flow Rate 2 2 12/08/23 12:03 12/08/23 12:15 12/08/23 12:30 Temperature Pulse Rate 82 79 76 Pulse Rate [Pulse Oximeter] Respiratory Rate Blood Pressure Blood Pressure [Ri ght Arm] Pulse Oximetry 90 89 91 Oxygen Delivery Me thod Nasal Cannula Nasal Cannula Nasal Cannula Oxygen Flow Rate 2 2 2 12/08/23 12:45 12/08/23 13:08 12/08/23 13:15 Temperature Pulse Rate 85 88 78 Pulse Rate [Pulse Oximeter] Respiratory Rate Blood Pressure Blood Pressure [Ri t Arm] Pulse Oximetry 91 92 91 Oxygen Delivery Me thod Nasal Cannula Nasal Cannula Nasal Cannula Oxygen Flow Rate 2 2 2 12/08/23 13:30 12/08/23 13:45 12/08/23 14:00 Temperature Pulse Rate 81 89 72 Pulse Rate [Pulse Oximeter] Respiratory Rate Blood Pressure Blood Pressure [Ri ght Arm] Pulse Oximetry 89 89 91 Oxygen Delivery Me thod Nasal Cannula Nasal Cannula Nasal Cannula Oxygen Flow Rate 2 2 2 12/08/23 14:01 12/08/23 14:02 12/08/23 14:15 Temperature Pulse Rate 77 78 76 Pulse Rate [Pulse Oximeter] Respiratory Rate Blood Pressure 138/79 Blood Pressure [Ri ght Arm] Pulse Oximetry 91 90 90 Oxygen Delivery Me thod Nasal Cannula Nasal Cannula Nasal Cannula Oxygen Flow Rate 2 2 2 12/08/23 14:30 12/08/23 16:27 12/08/23 16:27 Temperature 98.8 F Pulse Rate 78 Pulse Rate [Pulse Oximeter] 96 Respiratory Rate 16 20 Blood Pressure Blood Pressure [Ri ght Arm] 155/88 H Pulse Oximetry 91 91 91 Oxygen Delivery Me thod Nasal Cannula Nasal Cannula Nasal Cannula Oxygen Flow Rate 2 1 1 12/08/23 16:34 12/08/23 19:00 12/08/23 19:30 Temperature 98.8 F 99.2 F 99.2 F Pulse Rate Pulse Rate [Pulse Oximeter] 96 93 93 Respiratory Rate 20 20 20 Blood Pressure Blood Pressure [Ri ght Arm] 155/88 H 132/74 132/74 Pulse Oximetry 91 93 93 Oxygen Delivery Me thod Nasal Cannula Nasal Cannula Nasal Cannula Oxygen Flow Rate 1 1 1 12/08/23 22:31 12/08/23 23:00 12/08/23 23:00 Temperature 98.3 F Pulse Rate Pulse Rate [Pulse Oximeter] 75 75 Respiratory Rate 20 20 20 Blood Pressure Blood Pressure [Ri ght Arm] 136/84 Pulse Oximetry 89 89 Oxygen Delivery Me thod Room Air Room Air Oxygen Flow Rate 1 12/09/23 03:00 12/09/23 03:58 12/09/23 07:00 Temperature 98.3 F 98.3 F Pulse Rate Pulse Rate [Pulse Oximeter] 75 106 H 106 H Respiratory Rate 16 18 18 Blood Pressure Blood Pressure [Ri ght Arm] 130/86 130/86 Pulse Oximetry 91 90 Oxygen Delivery Me thod Room Air Room Air Oxygen Flow Rate 12/09/23 07:00 12/09/23 07:00 Temperature 98.3 F Pulse Rate Pulse Rate [Pulse Oximeter] 96 Respiratory Rate 18 18 Blood Pressure Blood Pressure [Ri ght Arm] 136/81 Pulse Oximetry 90 91 Oxygen Delivery Me thod Room Air Room Air Oxygen Flow Rate DS: Data Data Completed and Pending Completed studies during hospitalization: 12/08/2023 EKG: Normal sinus rhythm, 72 beats per minute, T-wave abnormality, consider anterior ischemia. Study: XRay-Chest 1V-12/08/2023 11:09:30 AM Ordering Physician: DR. MEJIA Final Report: INDICATION: Short of breath, HIV positive TECHNIQUE: 1 view chest radiograph COMPARISON: None. FINDINGS: Devices: None. Lung volumes are good. Eventration of the right hemidiaphragm. Streaky right middle lobe opacities. No pleural effusion. No pneumothorax. Heart size is normal. IMPRESSION: Nonspecific linear right middle lobe opacities may be pneumonia or atelectasis. Dictated by Archana Gamino MD @ 12/08/2023 11:44:49 AM Signed by: Archana Gamino MD @12/08/2023 11:44:49 AM (Electronic Signature) Dictated By: Archana Gamino M.D. Signed By: 12/08/23 1315 DD/ 1144 TD/TT: 12/08/23 1314 Study: CT-Chest W/O-12/08/2023 1:10:20 PM Ordering Physician: TASHA Final Report: INDICATION: Cough, HIV positive TECHNIQUE: CT of the chest was performed without intravenous contrast. Please note that all CT scans at this facility use dose modulation, iterative reconstruction, and/or weight-based dosing when appropriate to reduce radiation dose to as low as reasonably achievable. COMPARISON: Same day chest radiograph. FINDINGS: Medical devices: None. Thyroid: Normal. Lymph nodes: Limited evaluation without IV contrast. No supraclavicular, axillary, mediastinal, or hilar lymphadenopathy. Vasculature: Limited evaluation without IV contrast. Aorta and main pulmonary artery diameters are within normal range. Mild aortic calcification. Heart: Mild coronary artery calcification. No pericardial effusion. Other mediastinal structures: No significant abnormality. Lung parenchyma: Moderate centrilobular emphysema. 9 millimeter right upper lobe cyst (3/45). 1.2 centimeter right major fissure cyst (3/60). 7 millimeter left lower lobe cyst (3/76). Airways: [id number] bronchial wall thickening. Pleura: No significant abnormality. Chest wall: Mild bilateral gynecomastia. Upper abdomen: Mild hepatic steatosis. Cholelithiasis. Musculoskeletal: Mild multilevel degenerative changes of the visualized spine. Mild chronic posterior right rib deformities. IMPRESSION: 1. Moderate centrilobular emphysema with bilateral small pulmonary cysts. No focal consolidation or ground-glass opacities are seen. Consider correlation with CD4 count. 2. Ogkp-oj-onjlowkn bronchial wall thickening may represent airways infection or inflammation. Please note that all CT scans at this facility use dose modulation, iterative reconstruction, and/or weight-based dosing when appropriate to reduce radiation dose to as low as reasonably achievable. Dictated by Ike Aguilar MD @ 12/08/2023 1:41:47 PM Signed by: Ike Aguilar MD @12/08/2023 1:41:47 PM (Electronic Signature) Dictated By: Jeff Moore MD Signed By: 12/08/23 1603 DD/ 1341 TD/TT: 12/08/23 1603 Pending studies at discharge: Strep pneumo and Legionella Labs on day of discharge: Labs from last 24 hours 12/09/23 12/08/23 12/08/23 05:30 14:00 12:00 WBC 9.56 RBC 4.05 L Hgb 14.6 Hct 42.7 MCV 105 H MCH 36 H MCHC 34 RDW Coeff of Mark 13.1 Plt Count 87 L Neut % (Auto) 75.0 H Lymph % (Auto) 17.5 L Stanton % (Auto) 6.2 Eos % (Auto) 0.5 Baso % (Auto) 0.6 Neut # (Auto) 7.20 H Lymph # (Auto) 1.70 Stanton # (Auto) 0.60 Eos # (Auto) 0.05 Baso # (Auto) 0.06 Abs Immat Gran (auto) 0.02 Imm/Tot Granulo (auto) 0.2 INR 1.11 H VBG pH 7.405 VBG pCO2 44 VBG pO2 < 30.1 VBG HCO3 28 Sodium 136 Potassium 4.5 Chloride 104 Carbon Dioxide 27 Anion Gap 5 L BUN 17 Creatinine 0.7 Estimated Creat Clear 115.03 Estimated GFR 107 Glucose 105 Calcium 9.2 Total Bilirubin 3.5 H Direct Bilirubin 0.5 GGT 408 H AST 77 H ALT 44 Alkaline Phosphatase 83 Troponin I C-Reactive Protein NT-Pro-B Natriuret Pep Total Protein 8.1 Albumin 4.6 Procalcitonin Urine L. pneumophilia Ag Urine Strep pneumoniae Ag SARS-CoV-2 (PCR) Negative SARS-CoV-2 Influenza Type A (PCR) Negative PCR FLU A Influenza Type B (PCR) Negative PCR FLU B RSV (PCR) Negative PCR RSV Lab Acknowledgement Test Added 12/08/23 12/08/23 11:58 10:55 WBC RBC Hgb Hct MCV MCH MCHC RDW Coeff of Mark Plt Count Neut % (Auto) Lymph % (Auto) Stanton % (Auto) Eos % (Auto) Baso % (Auto) Neut # (Auto) Lymph # (Auto) Stanton # (Auto) Eos # (Auto) Baso # (Auto) Abs Immat Gran (auto) Imm/Tot Granulo (auto) INR VBG pH VBG pCO2 VBG pO2 VBG HCO3 Sodium 136 Potassium 4.0 Chloride 104 Carbon Dioxide 24 Anion Gap 8 BUN 13 Creatinine 0.6 Estimated Creat Clear 134.20 Estimated GFR 112 Glucose 119 H Calcium 8.8 Total Bilirubin 2.6 H Direct Bilirubin GGT AST 72 H ALT 38 Alkaline Phosphatase 95 Troponin I 0.02 C-Reactive Protein < 0.5 L NT-Pro-B Natriuret Pep 23 Total Protein 8.3 Albumin 4.7 Procalcitonin 0.05 Urine L. pneumophilia Ag Cancelled Urine Strep pneumoniae Ag Cancelled SARS-CoV-2 (PCR) Influenza Type A (PCR) Influenza Type B (PCR) RSV (PCR) Lab Acknowledgement Discharge Plan Discharge Disposition: Home, Self-Care Date of Admission: 12/08/23 15:11 Attending Provider on Discharge: Manda Spring Primary Care Provider: Provider,Not a Local Condition: Improved Anticipated Discharge Date/Time: 12/09/23 11:48 Discharge Medications: New prednisone 20 mg Tablet 40 mg PO DAILYWM Qty: 6 0RF nicotine (polacrilex) 4 mg Gum 4 mg buccal Q1H PRNQty: 100 0RF levofloxacin 500 mg Tablet 500 mg PO Q24H Qty: 4 0RF thiamine mononitrate (vit B1) [Vitamin B-1 (mononitrate)] 100 mg Tablet 100 mg PO Q24H Qty: 30 0RF folic acid 1 mg tablet 1 mg PO DAILY Qty: 30 0RF albuterol sulfate 90 mcg/actuation HFA aerosol inhaler 2 puff inhalation Q4-6H PRN (Reason: shortness of breath or wheezing) Qty: 8.5 0RF Continued Tivicay 50 mg tablet 50 mg PO DAILY Descovy 200-25 mg tablet 1 tab PO DAILY gabapentin 300 mg capsule 300 mg PO 3XD tramadol 50 mg tablet 50 mg PO 3XD PRN valacyclovir 1 gram tablet 1,000 mg PO DAILY lorazepam 1 mg tablet 1 mg PO Q12H PRN escitalopram oxalate 20 mg tablet 20 mg PO DAILY montelukast 10 mg tablet 10 mg PO DAILY alendronate 70 mg tablet 70 mg PO .weekly atorvastatin 40 mg tablet 40 mg PO DAILY Discharge Orders: Discharge Order (Routine); Ordered 12/09/23 Ordered By: Manda Spring Patient Education: COPD (Chronic Obstructive Pulmonary Disease) (DC) Additional Instructions: 1. Avoid tobacco use. 2. Return for worsening SOB or fevers. 3. F/u with PCP in 5 days. Activity Level: No Restrictions Discharge Diet: Regular Follow Up Appointments: Provider,Not a Local [Primary Care Provider] - [facility]
--- NOTE | 2023-12-09 15:54 | PC.NURSE ---
Patient walking in the curry while oxygen saturations being monitored. Oxygen saturations remained 89% and above during activity. Saline lock removed with catheter intaact. Patients discharge instructions given to the patient and all questions were answered and forms were signed. All belongings sent with patient. Pt escorted to front entrance via nursing staff by wheelchair.
== END 2023-12-09 12:26 | disposition home or self-care (01) | DRG 189 ==
LOC: ED 14:05 → MEDSURG 14:34
PROVIDERS: Admitting Provider Family Medicine; Emergency Provider Family Medicine; Visit Provider Family Medicine
DX: J96.01 Acute respiratory failure with hypoxia (principal); J44.1 Chronic obstructive pulmonary disease with (acute) exacerbation; B20 Human immunodeficiency virus [HIV] disease; Z72.0 Tobacco use; R79.89 Other specified abnormal findings of blood chemistry; F10.90 Alcohol use, unspecified, uncomplicated; Z86.11 Personal history of tuberculosis; F41.9 Anxiety disorder, unspecified; J43.9 Emphysema, unspecified
CPT/HCPCS: 36415; 71045; 71250; 80048; 80053; 80076; 82803; 82977; 83605; 83880; 84145; 84484; 85025; 85610; 86140; 87449; 87631; 87899; 93005; 94640; 94761; 99284; 99285; A9270; J7512; S4990

== ENCOUNTER 2024-08-20 13:22 | Outpatient (CLI) | payer MEDICARE, SELFPAY | END 2024-08-20 13:23 | disposition home or self-care (01) | DX: R07.89 Other chest pain (principal); R79.89 Other specified abnormal findings of blood chemistry; R05.9 Cough, unspecified; J44.9 Chronic obstructive pulmonary disease, unspecified; R10.816 Epigastric abdominal tenderness | CPT/HCPCS: 80053; 83690 ==

== ENCOUNTER 2025-08-06 10:11 | Emergency (ER) | payer MEDICARE, SELFPAY ==
[2025-08-06] VITALS (18 sets, daily range): BP systolic 108–134; BP diastolic 61–81; PULSE 57–99; RESP 11–38; TEMP 37.5; O2SAT 89–93; BMI 25.8
--- NOTE | 2025-08-06 10:36 | ED.GENADULT ---
HPI - General Adult General Date Seen: 08/06/25 Chief complaint: Rib Pain Stated complaint: Fall yesterday, R side pain Time Seen by Provider: 08/06/25 10:36 History of Present Illness HPI narrative: 60-year-old male presenting to the ER today with pain in his right side and ribs after a fall that occurred yesterday. Per triage note he actually fell down 8 steps yesterday and landed on carpet. He has been having pain in his right side since then. He says it is the worst pain he has ever had. He needed to sleep on his left side. He is a smoker. He also has a history of alcohol use, anxiety, HIV infection, COPD. Med list includes albuterol, trilogy, gabapentin, lorazepam, montelukast, tramadol, valacyclovir, emtricitabine, dolutegravir, atorvastatin, alendronate Patient reports that he tripped and fell yesterday afternoon and fell down the steps. He and re-injured his right had been having bad pain on his right lateral torso in the right lower ribs and right upper quadrant. When asked how he fell patient says that he is just clumsy and he has always been falling a lot her since he was a child. He says he did not faint. He was not pushed her assaulted. He remembers falling and did not have a seizure. He thinks he probably did not hit his head. He does not have a headache. He has been able to bear weight. He says that he has been trying to get through the pain at home but could not bear so came here to the ER this afternoon. He took some ibuprofen prior to arrival. He confirms that he is not on any anticoagulants other than baby aspirin. His HIV is well controlled. His primary care provider is a Dr. Richard Haq. Related Data Home Medications ?Medication ?Instructions ?Recorded ?Confirmed alendronate 70 mg tablet 70 mg PO .weekly 12/08/23 08/06/25 atorvastatin 40 mg tablet 40 mg PO DAILY 12/08/23 08/06/25 dolutegravir 50 mg tablet (Tivicay) 50 mg PO DAILY 12/08/23 08/06/25 emtricitabine 200 mg-tenofovir 1 tab PO DAILY 12/08/23 08/06/25 alafenamide fumarate 25 mg tablet (Descovy) escitalopram oxalate 20 mg tablet 20 mg PO DAILY 12/08/23 08/06/25 gabapentin 300 mg capsule 300 mg PO 3XD 12/08/23 08/06/25 lorazepam 1 mg tablet 1 mg PO Q12H PRN 12/08/23 08/06/25 montelukast 10 mg tablet 10 mg PO DAILY 12/08/23 08/06/25 tramadol 50 mg tablet 50 mg PO 3XD PRN 12/08/23 08/06/25 valacyclovir 1 gram tablet 1,000 mg PO DAILY 12/08/23 08/06/25 fluticasone fur. 100 mcg-umeclid 1 ea inhalation DAILY 08/06/25 08/06/25 62.5 mcg-vilant 25 mcg inhalat.powder (Trelegy Ellipta) Previous Rx's ?Medication ?Instructions ?Recorded albuterol sulfate 90 mcg/actuation 2 puff inhalation Q4-6H PRN 12/09/23 aerosol inhaler shortness of breath or wheezing #8.5 grams folic acid 1 mg tablet 1 mg PO DAILY #30 tabs 12/09/23 Allergies Allergy/AdvReac Type Severity Reaction Status Date / Time rifampin Allergy Verified 08/06/25 10:31 [facility] Medical History Low back pain ?M54.50 - Low back pain, unspecified (ICD-10) Hepatitis C ?B19.20 - Unspecified viral hepatitis C without hepatic coma (ICD-10) Anxiety ?F41.9 - Anxiety disorder, unspecified (ICD-10) TIA (transient ischemic attack) ?G45.9 - Transient cerebral ischemic attack, unspecified (ICD-10) 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) Pulmonary TB ?A15.0 - Tuberculosis of lung (ICD-10) History of shingles ?Z86.19 - Personal history of other infectious and parasitic diseases (ICD-10) Depression ?F32.A - Depression, unspecified (ICD-10) Peripheral vascular disease ?I73.9 - Peripheral vascular disease, unspecified (ICD-10) HIV (human immunodeficiency virus infection) ?B20 - Human immunodeficiency virus [HIV] disease (ICD-10) Surgical History H/O umbilical hernia repair ?Z98.890 - Other specified postprocedural states (ICD-10) ?Z87.19 - Personal history of other diseases of the digestive system (ICD-10) Social History Narrative: Lives with partner Jose (medical decision maker if needed), not currently working. Smokes about 1ppd, drinks 3-4 drinks 4-5 nights/week. No history of ETOH withdrawal. Requests DNR/DNI status. What is your current living situation?: I presently have a place to live Problems where you live: no known problems Problems where you live details: n/a In the past 12 months, utilities in danger of being shut off: no In past 12 months, lack of transportation kept you from medical appts, meetings, work, or getting things needed for daily living: no In the past 12 mos, have been you worried that your food would run out before you had money to buy more?: never true In the past 12 mos, the food you bought just didn't last and you didn't have money to buy more?: never true Highest level of school completed/degree received: don't know Smoking Status: Current every day smoker What tobacco products do you use: cigarettes Smoking packs per day: 1 Smoking cigarettes per day: 20.0 Do you use any of these nicotine containing products: None How often do you have a drink containing alcohol: 4 or more times a week How many standard drinks containing alcohol do you have on a typical day: 3 or 4 AUDIT-C Alcohol total score: 5 Non-prescribed substance use: denies use Caffeine: Yes (2 diet cokes/day) Are you now , , , , never or living with a partner: living with partner Social isolation score (0-1 are the most socially isolated patients): 1 How often does anyone, including family, friends and others, physically hurt you: never How often does anyone, including family, friends and others, insult or talk down to you: never How often does anyone, including family, friends and others, threaten you with harm: never How often does anyone, including family, friends and others, scream or curse at you: never Exam Narrative: Exam Narrative: Primary Survey: A- patent. Speaking clearly. Phonation normal. No stridor. B- breathing easily. Lung sounds clear and equal. Oxygen saturation normal on room air C- no active bleeding. Blood pressure stable. Symmetric pulses and cap refill in 4 extremities. D- alert and oriented x3. GCS 15. No focal deficits. He has a very vague historian. Limited he because of pain and discomfort Laying in the left lateral decubitus position because he is having too much pain to rolled over supine Constitutional: Appears well-developed and well-nourished. Alert. Conversant. Non toxic. HENT: Head: No depressed skull fracture, Raccoon Eyes, Sloan's sign, or hemotympanum. Face normal. TMs normal Nose: Nose normal. Mouth/Throat: Oral mucosa is clear and moist. no trismus. Pharynx normal. Tonsils symmetric. No tonsillar enlargement, erythema, or exudate. Eyes: Conjunctivae normal. EOM normal. Pupils equal, round, and reactive to light. No scleral icterus. Neck: Normal range of motion. Neck supple. No tracheal deviation present. No definite posterior midline tenderness but limited by distracting injury Cardiovascular: Normal rate, regular rhythm. No gallop. No friction rub. No murmur heard. Symmetric radial artery pulses Pulmonary/Chest: Effort normal. No stridor. No respiratory distress. No wheezes. No rales. No rhonchi . Marked lateral chest wall . Posterior lateral chest wall bruising Abdominal: Soft. Bowel sounds normal. No distension. No mass. Right upper quadrant tenderness. No rebound. No guarding. Musculoskeletal: RUE: Normal range of motion. No tenderness. No deformity LUE: Normal range of motion. No tenderness. No deformity RLE: Normal range of motion. No edema. No tenderness. No deformity LLE: Normal range of motion. No edema. No tenderness. No deformity Lymph: No cervical adenopathy. Neurological: Alert and oriented to person, place, and time. Normal strength. CN II-VII intact. No sensory deficit. GCS eye subscore is 4. GCS verbal subscore is 5. GCS motor subscore is 6. Normal coordination . No focal deficits Skin: Skin is warm and dry. No rash noted. No pallor. Normal capillary refill. Psychiatric: Somewhat anxious. Limited by pain. Const: Vital Signs, click to edit/add: Vital Signs - 24 hr 08/06/25 10:21 08/06/25 11:30 08/06/25 12:15 Temperature 99.5 F Pulse Rate 94 Pulse Rate [Pulse Oximeter] 57 L Respiratory Rate 20 25 H Blood Pressure [Ri ght Upper Arm] 108/64 Pulse Oximetry 89 91 Oxygen Delivery Me thod Room Air OxyMask OxyMask Oxygen Flow Rate 2 2 08/06/25 12:19 Temperature Pulse Rate 96 Pulse Rate [Pulse Oximeter] Respiratory Rate 26 H Blood Pressure [Ri ght Upper Arm] Pulse Oximetry 92 Oxygen Delivery Me thod OxyMask Oxygen Flow Rate 2 Course Vital Signs Vital signs: Initial Vital Signs Temperature 99.5 F 08/06/25 10:21 Temperature Source Temporal Artery Scan 08/06/25 10:21 Pulse Rate 57 L 08/06/25 10:21 Respiratory Rate 20 08/06/25 10:21 Blood Pressure 108/64 08/06/25 10:21 Blood Pressure Mean 78 08/06/25 10:21 Blood Pressure Position Sitting 08/06/25 10:21 Pulse Oximetry 89 08/06/25 10:21 Oxygen Delivery Method Room Air 08/06/25 10:21 Vital Signs Temperature 99.5 F 08/06/25 10:21 Pulse Rate 57 L 08/06/25 10:21 Respiratory Rate 20 08/06/25 10:21 Blood Pressure 108/64 08/06/25 10:21 Pulse Oximetry 89 08/06/25 10:21 Oxygen Delivery Method Room Air 08/06/25 10:21 Temperature 99.5 F 08/06/25 10:21 Pulse Rate 96 08/06/25 12:19 Respiratory Rate 26 H 08/06/25 12:19 Blood Pressure 108/64 08/06/25 10:21 Pulse Oximetry 92 08/06/25 12:19 Oxygen Delivery Method OxyMask 08/06/25 12:19 Oxygen Flow Rate 2 08/06/25 12:19 Medications Administered Medications: Generic Name Dose Route Start Last Admin Trade Name Freq PRN Reason Stop Dose Admin Hydromorphone HCl 0.5 mg 08/06/25 12:20 08/06/25 12:26 Hydromorphone 0.5 Mg/0.5 Ml Inj IVP 0.5 mg Q1H PRN Administration Pain Discontinued Medications Generic Name Dose Route Start Last Admin Trade Name Mayank PRN Reason Stop Dose Admin Fentanyl 50 mcg 08/06/25 10:46 08/06/25 11:27 Fentanyl 100 Mcg/2 Ml Inj IVP 08/06/25 10:47 50 mcg ONCE ONE Administration Sodium Chloride 500 mls @ 500 mls/hr 08/06/25 10:46 08/06/25 12:31 0.9 % Sodium Chloride 500 Ml IV 08/06/25 11:45 Infused .Q1H ONE Infusion Ondansetron HCl 4 mg 08/06/25 10:46 08/06/25 11:23 Ondansetron 2 Mg/Ml Inj IVP 08/06/25 10:47 4 mg ONCE ONE Administration Medical Decision Making MDM Narrative Medical decision making narrative: 6-year-old male presenting to the ER today with severe right-sided pain (in the right side of his torso) after a trip and fall down the steps that occurred yesterday afternoon almost 24 hours prior to presentation 1. Neuro. Patient is little bit unclear about the events of the fall. Head CT scan is obtained to look for signs of intracranial hemorrhage in fortunately is normal C-spine cannot be cleared clinically because of distracting injury and severe pain in the right side of his torso. C-spine CT is obtained and is fortunately negative for any sign of acute fracture or subluxation. He is not having any acute focal deficits to suggest cervical spine injury 2. Pulmonary. Patient does have 2 right-sided rib fractures. There is a tiny subcutaneous emphysema adjacent to the right 8th rib fracture but I do not see any large pneumothorax requiring a chest tube at this time. No evidence for hemothorax. He is having tremendous pain from that rib fractures in ribs requiring serial doses of IV opiates. The IV opiates have triggered hypoxia requiring nasal cannula. Superimposed on the rib fractures the patient has pre-existing COPD. He has also had cough chronically, not worse than normal. CT scan also suggest possible nodular infection in the left upper and lower lungs. Will treat with antibiotics for community-acquired pneumonia. Coronavirus and influenza PCR pending at the time of this dictation. 3. Hepatic. There is some signs of hepatic steatosis and hepatomegaly. LFTs are abnormal with an AST of 173 an ALT of 54. Total bilirubin is normal 1.3. With the patient's somewhat vague history and abnormal liver findings, consider alcohol use. We did check serum alcohol level and is abnormal at 0.27. Since the patient is not markedly slurring his speech, the suggest a fairly high alcohol tolerance, probably chronic alcohol use. He is not having any signs of alcohol withdrawal at this time Fortunately no evidence for any hepatic injury. Lactic acid elevated at 2.9. Will recheck after crystalloid resuscitation but suspect this is due to hepatic metabolism. There is note of gallstones on the CT scan without any CT evidence for acute cholecystitis. Thrombocytopenia likely related to chronic alcohol consumption/liver disease. At this point he is not showing tachycardia, tremor, or other symptoms of obvious alcohol withdrawal. His partner seems fairly ate dinner and about alcohol consumption for this patient. However I have clinical suspicion that he probably does have pattern of alcohol overuse/misuse 4. GI. CT scan shows evidence for duodenitis. Was start on PPI. No evidence for perforation or active GI bleeding. 5. Renal. BUN and creatinine normal. Electrolytes on BMP are normal. Patient's primary care is through [facility]. Clearly transfer is indicated for this patient given his multiple medical problems and traumatic injuries. Patient consenting to go to [place]. He is accepted to the ER at [place] by Dr. Cantu Lab Data Labs: Lab Results 08/06/25 08/06/25 Range/Units 11:11 11:26 WBC 8.45 (4.50-11.00) K/uL RBC 4.11 L (4.30-5.90) m/uL Hgb 14.4 (13.5-17.5) gm/dL Hct 42.7 (37.0-53.0) % MCV 104 H (80-100) fL MCH 35 H (26-34) pg MCHC 34 (32-36) gm/dL RDW Coeff of Mark 14.7 (11.5-15.5) % Plt Count 45 L* (140-440) K/uL Neut % (Auto) 81.5 H (42.0-72.0) % Lymph % (Auto) 11.1 L (20-44) % [place] % (Auto) 6.2 (0.0-11.0) % Eos % (Auto) 0.4 (0.0-7.0) % Baso % (Auto) 0.7 (0.0-3.0) % Neut # (Auto) 6.90 (1.7-7.0) K/uL Lymph # (Auto) 0.90 (0.90-2.90) K/uL [place] # (Auto) 0.50 (0.00-0.90) K/UL Eos # (Auto) 0.03 (0.00-0.50) K/uL Baso # (Auto) 0.06 (0.00-0.30) K/uL Abs Immat Gran (auto) 0.01 (0.00-0.30) K/uL Imm/Tot Granulo (auto) 0.1 % Sodium 138 (135-149) mmol/L Potassium 4.0 (3.6-5.1) mmol/L Chloride 99 (96-114) mmol/L Carbon Dioxide 26 (20-32) mmol/L Anion Gap 13 (7-15) mEq/L BUN 11 (7-30) mg/dL Creatinine 0.7 (0.5-1.5) mg/dL Estimated Creat Clear 112.22 Estimated GFR 105 ml/min Glucose 126 H (60-115) mg/dL Lactate 2.9 H (0.5-1.9) mmol/L Calcium 8.0 L (8.4-10.6) mg/dL Total Bilirubin 1.3 (0.1-1.5) mg/dL AST 173 H (12-35) U/L ALT 54 H (4-50) U/L Alkaline Phosphatase 177 H (40-150) U/L Total Protein 7.6 (6.0-8.3) g/dL Albumin 4.0 (3.3-5.0) g/dL Ethyl Alcohol 0.27 H (0.01-0.03) % POC Creatinine 1.0 (0.6-1.3) mg/dl Blood Type A Positive Antibody Screen NEGATIVE Imaging Data Chest x-ray: Attestation: I have reviewed the pertinent imaging results. My impression: Right 7th and 8th rib fractures. Also possibly a right 2nd rib fracture. I do not see any pneumothorax. No obvious hemothorax. Radiologist's impression: IMPRESSION: 1. Acute right 8th nondisplaced rib fracture. 2. New linear atelectasis right lower lung 3. Progression of linear atelectasis or scarring left base CT C spine: Attestation: I have reviewed the pertinent imaging results. Radiologist's impression: IMPRESSION: 1. No acute bony abnormality of the cervical spine. 2. Multilevel cervical spondylosis. CT scan - head: Attestation: I have reviewed the pertinent imaging results. Radiologist's impression: IMPRESSION: No evidence of an acute intracranial abnormality. CT Chest/Ab/Pelvis: Attestation: I have reviewed the pertinent imaging results. My impression: Right 7th and 8th rib fractures. Tiny subcutaneous emphysema next to the 8th rib fracture. No other new. Do not see hemothorax. There is some focal enhancement of the right lobe of the liver. Not clear if this is a liver contusion or not. I put a call to consulting radiology tab them rapidly over read this image at about 12:15 p.m.. They indicate that the abdomen CT is currently being read by the radiologist so we will await the report. Radiologist's impression: IMPRESSION: 1. Acute, slightly displaced right lateral 8th and 9th rib fractures. No pneumothorax. 2. No other evidence of an acute traumatic injury within the chest, abdomen, or pelvis. 3. Mild mural thickening of the distal duodenum with subtle periduodenal inflammatory stranding. Findings consistent with duodenitis, in the correct clinical setting. 4. Small irregular nodular airspace opacities within the left upper lobe and left lower lobe bronchial wall thickening with scattered mucous plugging. Findings compatible with a multifocal infectious/inflammatory process. Recommend follow-up imaging after treatment to ensure resolution. 5. Cholelithiasis. 6. Hepatomegaly with severe hepatic steatosis. ECG Data Attestation: I personally reviewed and interpreted this ECG as follows: Interpretation: Normal sinus rhythm Rate 89 TX interval 162 Normal QRS axis No ST segment elevation or depression. Nonspecific T-wave flattening in the precordial leads QT 404, QTC 491 Critical Care Time Critical Care Time Critical Care Time: Yes Attestation: The patient required my highest level preparedness to intervene emergently and I personally spent this critical care time directly and personally managing the patient. This critical care time included: Obtaining a history; Examining the patient; Pulse oximetry; Ordering and reviewing of studies; Arranging urgent treatment with development of a management plan; Evaluation of patients response to treatment; Frequent reassessment discussions with other providers. This critical care time was performed to assess and manage the high probability of imminent life-threatening deterioration that could result in multiorgan failure. It was exclusive of separate billable procedures and treating other patients and teaching time. Total Critical Care Time in Minutes: 35 Discharge Plan Discharge Clinical Impression: Multiple rib fractures, Hypoxia, Pneumonia, COPD (chronic obstructive pulmonary disease), Alcohol intoxication, Duodenitis Prescriptions: No Action Tivicay 50 mg tablet 50 mg PO DAILY Descovy 200-25 mg tablet 1 tab PO DAILY gabapentin 300 mg capsule 300 mg PO 3XD tramadol 50 mg tablet 50 mg PO 3XD PRN valacyclovir 1 gram tablet 1,000 mg PO DAILY lorazepam 1 mg tablet 1 mg PO Q12H PRN escitalopram oxalate 20 mg tablet 20 mg PO DAILY montelukast 10 mg tablet 10 mg PO DAILY alendronate 70 mg tablet 70 mg PO .weekly atorvastatin 40 mg tablet 40 mg PO DAILY folic acid 1 mg tablet 1 mg PO DAILY Qty: 30 0RF albuterol sulfate 90 mcg/actuation HFA aerosol inhaler 2 puff inhalation Q4-6H PRN (Reason: shortness of breath or wheezing) Qty: 8.5 0RF Trelegy Ellipta 100-62.5-25 mcg blister with device 1 ea INHALATION DAILY Follow Up/Referrals: Provider,Not a Local [Primary Care Provider, Family Practice]
--- NOTE | 2025-08-06 10:46 | CRLHL7_ITS ---
For Patients: As a result of the Century Cures Act, medical imaging exams and procedure reports are released immediately into your electronic medical record. You may view this report before your referring provider. If you have questions, please contact your health care provider. INDICATION: Fell down steps, amnesia. TECHNIQUE: CT head without contrast. COMPARISON: 06/08/2011. FINDINGS: Brain parenchyma, CSF spaces, and extra-axial spaces: The martinez-white differentiation is normal. No sign of mass, hemorrhage, or midline shift. No hydrocephalus. No extra-axial fluid collection. Skull base and calvarium: The visualized paranasal sinuses demonstrate no acute or significant findings. The mastoid air cells are clear. The visualized orbits are grossly unremarkable. No skull fracture. IMPRESSION: No evidence of an acute intracranial abnormality. Please note that all CT scans at this facility use dose modulation, iterative reconstruction, and/or weight-based dosing when appropriate to reduce radiation dose to as low as reasonably achievable. Dictated by Ernesto Arciniega MD @ 08/06/2025 12:13:58 PM (Electronically Signed)
--- NOTE | 2025-08-06 10:46 | CRLHL7_ITS ---
For Patients: As a result of the Cures Act, medical imaging exams and procedure reports are released immediately into your electronic medical record. You may view this report before your referring provider. If you have questions, please contact your health care provider. INDICATION: Fell down steps. TECHNIQUE: CT cervical spine without contrast. COMPARISON: None. FINDINGS: Vertebrae: Grade 1 anterolisthesis of C3 on C4, C4 on C5, and C5 on C6. No acute fracture or suspicious bony lesion. Discs and facet joints: Advanced degenerative disc changes at C6-7. Moderate multilevel bilateral facet arthrosis, greatest at C3-4 bilaterally. Extraspinal findings: Biapical emphysema. Otherwise, unremarkable IMPRESSION: 1. No acute bony abnormality of the cervical spine. 2. Multilevel cervical spondylosis. Please note that all CT scans at this facility use dose modulation, iterative reconstruction, and/or weight-based dosing when appropriate to reduce radiation dose to as low as reasonably achievable. Dictated by Ernesto Arciniega MD @ 08/06/2025 12:19:34 PM (Electronically Signed)
--- NOTE | 2025-08-06 10:46 | CRLHL7_ITS ---
For Patients: As a result of the Century Cures Act, medical imaging exams and procedure reports are released immediately into your electronic medical record. You may view this report before your referring provider. If you have questions, please contact your health care provider. INDICATION: Fell down steps, right rib, flank, right upper quadrant, and right lower quadrant pain. TECHNIQUE: CT chest, abdomen and pelvis acquired with 83 cc of Isovue 370 IV contrast. COMPARISON: None. FINDINGS: CHEST: Cardiovascular structures: Heart size is normal. Thoracic aorta and main pulmonary artery are normal in caliber. Mediastinum and teri: No mass or adenopathy. Lungs and pleura: Mild centrilobular and paraseptal emphysema. Small irregular nodular airspace opacities within the left upper lobe. Left lower lobe bronchial wall thickening with scattered mucous plugging. No pleural effusion or pneumothorax. Chest wall and axilla: No mass or adenopathy. Bones: Acute, slightly displaced right lateral 8th and 9th rib fractures. Old posterior 10th and 11th rib fractures. Otherwise, unremarkable for age. ABDOMEN AND PELVIS: Liver: Hepatomegaly with hepatic steatosis. Fatty sparing within the right hepatic lobe. No sign of acute injury. Gallbladder and bile ducts: Distended gallbladder with multiple stones. No mural thickening or pericholecystic fluid. No biliary ductal dilatation. Pancreas: Unremarkable. Spleen: Unremarkable. No sign of acute injury. Adrenal glands: Unremarkable. Kidneys: Irregular calcific focus within the inferior pole of the left kidney, likely sequela of previous insult. No hydronephrosis or suspicious mass. GI tract: Diverticulosis without pericolonic inflammation. No obstruction. Normal appendix. Mild mural thickening of the distal duodenum with mild Cindy duodenal inflammatory stranding. The inflammatory stranding extends along the bilateral anterior perirenal fascia. Vascular structures: Normal caliber abdominal aorta with mild atherosclerotic calcification. Mesenteric arteries are patent. Lymph nodes: Unremarkable. Miscellaneous: Unremarkable. No free air or significant free fluid. Pelvic Organs: Unremarkable. Bones: No acute fracture or dislocation. IMPRESSION: 1. Acute, slightly displaced right lateral 8th and 9th rib fractures. No pneumothorax. 2. No other evidence of an acute traumatic injury within the chest, abdomen, or pelvis. 3. Mild mural thickening of the distal duodenum with subtle periduodenal inflammatory stranding. Findings consistent with duodenitis, in the correct clinical setting. 4. Small irregular nodular airspace opacities within the left upper lobe and left lower lobe bronchial wall thickening with scattered mucous plugging. Findings compatible with a multifocal infectious/inflammatory process. Recommend follow-up imaging after treatment to ensure resolution. 5. Cholelithiasis. 6. Hepatomegaly with severe hepatic steatosis. Please note that all CT scans at this facility use dose modulation, iterative reconstruction, and/or weight-based dosing when appropriate to reduce radiation dose to as low as reasonably achievable. Dictated by Ernesto Arciniega MD @ 08/06/2025 12:38:53 PM (Electronically Signed)
--- NOTE | 2025-08-06 10:46 | CRLHL7_ITS ---
For Patients: As a result of the Cures Act, medical imaging exams and procedure reports are released immediately into your electronic medical record. You may view this report before your referring provider. If you have questions, please contact your health care provider. INDICATION: Fall with right rib pain TECHNIQUE: Chest 1 views. COMPARISON: March 22, 2025 FINDINGS: Tubes and devices: None. Lungs: Progression of linear atelectasis or scarring left base. New linear atelectasis right lower lung. Pleura: No pleural effusion. No pneumothorax. Heart: Heart size and vasculature are normal in caliber and appearance. Nancy and Mediastinum: No enlargement. Bones and soft tissues: Acute right 8th posterolateral nondisplaced rib fracture. IMPRESSION: 1. Acute right 8th nondisplaced rib fracture. 2. New linear atelectasis right lower lung 3. Progression of linear atelectasis or scarring left base Dictated by Jhony Gtz MD @ 08/06/2025 11:25:21 AM (Electronically Signed)
[2025-08-06 11:19] LABS: Lactate* 2.9 mmol/L (0.5-1.9)
[2025-08-06 11:22] LABS: Hematocrit* 42.7 % (37.0-53.0); Hemoglobin* 14.4 gm/dL (13.5-17.5); Immature Granulocytes Abs Auto 0.01 K/uL (0.00-0.30); Immature Granulocytes Pct Auto 0.1 %; Mean Corpuscular HGB Conc 34 gm/dL (32-36); Mean Corpuscular Hemoglobin 35 pg (26-34); Mean Corpuscular Volume 104 fL (80-100); RDW Coefficient of Variation % 14.7 % (11.5-15.5); Red Blood Count* 4.11 m/uL (4.30-5.90); White Blood Count* 8.45 K/uL (4.50-11.00)
[2025-08-06] MEDS: ONDANSETRON 2 MG/ML inj 4 MG IVP (11:23)
[2025-08-06] MEDS: 0.9 % SODIUM CHLORIDE 500 ML 500 ML IV (11:23)
[2025-08-06 11:24] LABS: Lymphocytes Absolute Auto 0.90 K/uL (0.90-2.90); Slide Review Reflex No
[2025-08-06 11:31] LABS: Creatinine, Point-of-Care* 1.0 mg/dl (0.6-1.3)
[2025-08-06 11:41] LABS: Albumin* 4.0 g/dL (3.3-5.0); Chloride* 99 mmol/L (96-114); Sodium* 138 mmol/L (135-149)
[2025-08-06 11:42] LABS: Potassium* 4.0 mmol/L (3.6-5.1)
[2025-08-06 11:44] LABS: Alanine Aminotransferase* 54 U/L (4-50); Anion Gap 13 mEq/L (7-15); Aspartate Amino Transferase* 173 U/L (12-35); Blood Urea Nitrogen* 11 mg/dL (7-30); Carbon Dioxide* 26 mmol/L (20-32); Creatinine* 0.7 mg/dL (0.5-1.5); Est. Creatinine Clearance* 112.22; Estimated Glomerular Filt Rate 105 ml/min; Total Protein* 7.6 g/dL (6.0-8.3)
[2025-08-06 11:45] LABS: Alkaline Phosphatase* 177 U/L (40-150); Bilirubin Total* 1.3 mg/dL (0.1-1.5); Calcium* 8.0 mg/dL (8.4-10.6); Ethanol* 0.27 % (0.01-0.03); Glucose* 126 mg/dL (60-115)
[2025-08-06] MEDS: cefTRIAXone 1 GM in 0.9 % SODIUM CHLORIDE Mini-bag 100 ML IVPB (13:29)
[2025-08-06] MEDS: AZITHROMYCIN 500 MG in 0.9 % SODIUM CHLORIDE 250 ml 250 ML 255 MG IVPB (13:32)
[2025-08-06 13:46] LABS: PCR FLU A Negative PCR FLU A (Negative); PCR FLU B Negative PCR FLU B (Negative); PCR RSV Negative PCR RSV (Negative); SARS PCR* Negative SARS-CoV-2 (Negative)
== END 2025-08-06 14:09 | disposition short-term general hospital (02) ==
LOC: ED 11:49
PROVIDERS: Emergency Provider Emergency Medicine
DX: S22.41XA Multiple fractures of ribs, right side, initial encounter for closed fracture (principal); J18.9 Pneumonia, unspecified organism; J44.9 Chronic obstructive pulmonary disease, unspecified; F10.129 Alcohol abuse with intoxication, unspecified; K29.80 Duodenitis without bleeding; R09.02 Hypoxemia; W10.9XXA Fall (on) (from) unspecified stairs and steps, initial encounter
CPT/HCPCS: 36415; 70450; 71045; 71260; 72125; 74177; 80053; 82077; 82565; 83605; 85025; 86850; 86900; 86901; 87040; 87631; 96365; 96366; 96375; 99285; 99291; J0456; J0696; J1171; J2405; J2470; J3010; J7030; J7050; Q9967

== ENCOUNTER 2025-08-06 13:50 | Outpatient (CLI) | payer MEDICARE, SELFPAY | END 2025-08-06 13:51 | disposition home or self-care (01) | LOC: AMB 08-14 18:07 | PROVIDERS: Visit Provider Emergency Medicine | DX: S22.49XA Multiple fractures of ribs, unspecified side, initial encounter for closed fracture (principal); R09.02 Hypoxemia; J18.9 Pneumonia, unspecified organism | CPT/HCPCS: A0425; A0434 ==